=== PATIENT | male | born 1985 | race Caucasian/White ===

== ENCOUNTER 2016-03-30 11:03 | Emergency (ER) | payer SELFPAY ==
[~2016-03-30] VITALS: Ht 167.6 cm; Wt 78.0 kg
[~2016-03-30 11:03] MED LIST: ALBUTEROL SULF8.5 GM INH; HYDROCORTISONE28 G5 TOPIC; NKM; PREDNISONE20 MG ORAL; PREDNISONE50 MG ORAL
[2016-03-30] MEDS ORDERED: ALBUTEROL SULF8.5 GM INH (11:52)
--- NOTE | 2016-03-30 11:57 | Emergency Room Report ---
History of Present Illness General Chief Complaint: Medication Refill Source: Patient Present Illness HPI Patient presents with complaints of mild shortness of breath He feels that he is having a mild exacerbation of his asthma and is out of his medications Denies any headache or visual changes denies any cough denies any chest pain denies any recent travel Patient reports that his last inhaler finished 2 days ago and is requesting a refill He does not feel that he needs a breathing treatment at this time Allergies: Coded Allergies: No Known Allergies (Unverified , 10/12/12) Patient History Past Medical History: see triage record Pertinent Family History: none Reviewed Nursing Documentation: PMH: Agreed, PSxH: Agreed Nursing Documentation-PMH Past Medical History: No History, Except For Hx Asthma: Yes Review of Systems All Other Systems: negative except mentioned in HPI Physical Exam Vital Signs Date Time Temp Pulse Resp B/P Pulse Ox O2 Delivery O2 Flow Rate FiO2 03/30/16 11:13 97.9 66 22 144/93 98 Room Air Sp02 EP Interpretation: reviewed, normal General Appearance: well appearing, no apparent distress Head: normocephalic, atraumatic Eyes: bilateral eye EOMI, bilateral eye PERRL ENT: hearing grossly normal, normal pharynx, TMs + canals normal, uvula midline Neck: full range of motion, supple, no meningismus, no bony tend Respiratory: lungs clear, normal breath sounds - Don't appreciate any obvious wheezing, no rhonchi, no respiratory distress, no retraction, no accessory muscle use Cardiovascular #1: normal peripheral pulses, regular rate, rhythm, no edema, no gallop, no JVD, no murmur Gastrointestinal: normal bowel sounds, non tender, soft, no mass, no organomegaly, non-distended, no guarding, no hernia, no pulsatile mass, no rebound Musculoskeletal: normal inspection Neurologic: oriented x3, responsive, solid state tester III-XII nml as tested, motor strength/ tone normal, sensory intact Psychiatric: mood/affect normal Skin: normal color, no rash, warm/dry, palpation normal Lymphatic: normal inspection, no adenopathy Medical Decision Making Diagnostic Impression: Primary Impression: Asthma exacerbation ER Course Patient was provided refill for his medications At this time does not feel he needs treatment and clinically oxygenating appropriately hemodynamically stable And appropriate for close outpatient followup Last Vital Signs Date Time Temp Pulse Resp B/P Pulse Ox O2 Delivery O2 Flow Rate FiO2 03/30/16 11:13 97.9 66 22 144/93 98 Room Air Status: unchanged Disposition: HOME, SELF-CARE Condition: Stable Scripts Albuterol Sulfate* (ALBUTEROL SULFATE MDI*) 8.5 Gm Hfa.aer.ad 2 PUFF INH Q6H, #1 EA 0 Refills Prov: JERRY CANNON D.O. 03/30/16 Referrals: NOT CHOSEN IPA/MD,REFERRING (PCP) Patient Instructions: Asthma, Adult Additional Instructions: Patient is provided with the discharge instructions notified to follow up with primary doctor in the next 2-3 days otherwise return to the er with any worsening symptoms. JERRY CANNON D.O. Mar 30, 2016 11:57
[2016-03-30 12:00] VITALS: BP 144/93
== END 2016-03-30 12:00 | disposition home or self-care (01) ==
LOC: EMR 11:29
DX: J45.901 Unspecified asthma with (acute) exacerbation (principal)
CPT/HCPCS: 99283